=== PATIENT | female | born 1970 | race Hispanic/Latino ===

== ENCOUNTER 2017-05-20 17:26 | Emergency (ER) | payer MEDICAID ==
[~2017-05-20] VITALS: Ht 167.6 cm; Wt 84.1 kg
[~2017-05-20 17:26] MED LIST: LEVO75TA4 PO; ONDA4TAB12 PO; PROP20TA5 PO
[2017-05-20 17:51] VITALS: BP 154/102; PULSE 72; RESP 20; O2SAT 100
--- NOTE | 2017-05-20 18:30 | ED.REPORT ---
HPI-General Illness Date of Service May 20, 2017 ED Provider: Sincere Barrow MD The pt is a 46 y/o female with hx of anxiety, anemia and hypothyroidism who presents to the ED complaining of midsternal chest pain onset 4 hours ago after eating. The pain was initially 8/10 and accompanied by anxiety and diaphoresis but has now subsided to 0/10 after burping and relieving her anxiety. The pain has been intermittently present for four months. The pt reports the pain as nonradiating and sharp, and has noticed that it is exacerbated by eating. The pain was relieved with drinking club soda and burping. She denies swelling of the extremities, fever, abdominal pain, or hematemesis. The pt believes that her symptoms are due to anxiety or reflux. She has not been taking her anxiety medications recently. Nursing Notes Stated Complaint: CHEST PAIN, LIKE HEARTBURN, STABBING IN RIGHT SIDE Chief Complaint: Chest Pain Nursing Notes Reviewed: Yes Allergies: Coded Allergies: No Known Allergies (Verified , 09/25/14) Scheduled Levothyroxine (Levothyroxine) 75 Mcg Tablet 75 MCG PO DAILY Propranolol HCl (Propranolol HCl) 20 Mg Tablet 30 MG PO BID Scheduled PRN Ondansetron ODT (Ondansetron ODT) 4 Mg Tab.rapdis 4 MG PO BID PRN PRN For Nausea General Time Seen by MD: 20:56 Chief Complaint Chest pain Hx Obtained From: Patient Arrived By: Walk-in Sudden in Onset?: No Onset Occurred: 1 - 4 hours ago Symptom Duration: Waxes and wanes Location: : Chest Quality: Sharp Severity: Current: No pain currently Severity: Maximum: Pain level 8 out of 10 Recent Healthcare: No recent hospitalization, Recent doctor visit Similar Sx Previous: No Past Medical History Past Medical History hypothyroidism postconcussion syndrome causing chronic ANN & vertigo h/o drug induced agranulocytosis anemia depression anxiety Past Surgical History 3 c-sections Reports: Appendectomy Family History mother - DM father - kidney related illness Reports: Diabetes mellitus Smoking History Never Smoker Social History Alcohol Use: Denies alcohol use Drug Use: Denies drug use Ambulatory Status Independent Review of Systems Full Review of Systems Constitutional: Denies: Chills Eyes: Denies: Blurred bilateral Ears / Nose / Throat: Denies: Sore throat Respiratory: Denies: Hemoptysis, Non-productive cough Cardiovascular: Reports: Chest pain GI: Denies: Abdominal pain, Diarrhea, Hematochezia, Nausea Female: Denies: Hematuria Musculoskeletal: Denies: Extremity swelling Skin: Denies Rash, Denies Swelling Allergy / Immune: Denies: Itching Neurologic: Denies: Headache Psychiatric: Reports: Anxiety Complete sys rev & neg: except as marked. Physical Exam Constitutional: Well-developed, well-nourished. Not diaphoretic. Head: Normocephalic and atraumatic. Mouth/Throat: Oropharynx is clear and moist. No oropharyngeal exudate. Eyes: EOM are normal. Pupils are equal, round, and reactive to light. Neck: Supple, no tracheal deviation. Cardiovascular: Normal rate, regular rhythm. Equal and intact distal pulses throughout. Pulmonary/Chest: Effort normal and breath sounds normal. No respiratory distress. Abdominal: Soft. No distension. There is no tenderness, rebound, or guarding. Bowel sounds present. Musculoskeletal: Range of motion grossly intact, moving all extremities. No edema or tenderness appreciated. Neurological: AOx3. Grossly nonfocal exam. Strength and sensation intact and equal to bilateral upper and lower extremities. Skin: Warm and dry, no rashes or pallor appreciated. Psychiatric: Appropriate mood and affect. Behavior appears normal. Vital Signs Vital Signs Date Time Temp Pulse Resp B/P Pulse Ox O2 Delivery O2 Flow Rate FiO2 05/20/17 17:51 36.8 72 20 154/102 100 Room Air Initial VS: Reviewed Interpretation & Diagnostics Lab Results Interpretation Result Diagram: 05/20/17 1836 05/20/17 1836 Test 05/20/17 18:36 05/20/17 19:55 White Blood Count 7.7th/mm3 (3.8-10.1) Red Blood Count 3.98mil/mm3 (3.90-5.20) Hemoglobin 12.7g/dL (12.0-15.6) Hematocrit 36.5% (35.0-46.0) Mean Corpuscular Volume 91.7fL (81-100) Mean Corpuscular Hemoglobin 31.9pg (27.0-35.0) Mean Corpuscular Hemoglobin Concent 34.8% (32.0-37.0) Red Cell Distribution Width 12.2% (12.3-15.4) Platelet Count 248bil/L (150-400) Neutrophils (%) (Auto) 66.1% (40-74) Lymphocytes (%) (Auto) 25.6% (14-46) Monocytes (%) (Auto) 7.5% (4-12) Eosinophils (%) (Auto) 0.6% (0-5) Basophils (%) (Auto) 0.1% (0-3) Sodium Level 140mEq/L (134-144) Potassium Level 3.6mEq/L (3.5-5.2) Chloride Level 104mEq/L (97-108) Carbon Dioxide Level 25mmol/L (18-29) Blood Urea Nitrogen 13mg/dL (6-24) Creatinine 0.66mg/dL (0.57-1.00) Estimat Glomerular Filtration Rate 139mL/min (>59) Glucose Level 105mg/dL (60-99) Calcium Level 9.5mg/dL (8.5-10.1) Magnesium Level 2.2mg/dL (1.6-2.6) Total Bilirubin 0.3mg/dL (0.0-1.2) Aspartate Amino Transf (AST/SGOT) 16U/L (0-50) Alanine Aminotransferase (ALT/SGPT) 14U/L (0-32) Alkaline Phosphatase 111U/L (25-150) Troponin T < 0.010ug/L (0.0-0.011) Total Protein 7.8g/dL (6.4-8.4) Albumin 4.5g/dL (3.4-5.0) Thyroid Stimulating Hormone (TSH) 7.060uIU/mL (0.450-4.500) Free Thyroxine 0.97ng/dL (0.82-1.77) Hold Bernard Top Tube Received (Received) Hold Urine Received (Received) ECG Interpretation ECG Interpretation: Sinus rhythm normal with rate of 80 No ischemic changes Time: 17:32 X-Ray Chest Interpretation Chest Xray Interpretation: IMPRESSION: No acute pulmonary process. Dictated by: Vero Clarke M.D. on 05/20/2017 at 19:12 View: Portable, 1 view Re-Eval/Medical Decision Med Decision/Clinical Course In summary, 46-year-old female who presents to the ED for evaluation of nonexertional, nonradiating, midsternal chest pain after eating, alleviated by burping and club soda, now resolved. Differential includes ACS, PE, PTX, aortic dissection, myocarditis/pericarditis, abdominal etiology such as cholecystitis, MSK pain, reflux. Pain has been improving since onset several hours ago; troponin negative. HEART score lowest risk. EKG demonstrates sinus rhythm with no acute ischemic changes. PERC negative. No evidence of pneumothorax on chest x -ray or exam. Pain not described as tearing through to the back, CXR w/ no evidence of widened mediastinum, normal neuro exam, and equal pulses to bilateral upper and lower extremities; aortic dissection seems very unlikely. Neither clinical presentation, exam, or EKG seem c/w pericarditis or myocarditis. No abdominal pain or tenderness. Laboratory studies reviewed; CBC and CMP grossly within normal limits, troponin negative, TSH elevated at 7.060, however free T4 normal and patient is on Synthroid. Given that patient's pain is relieved by burping and after club soda, occurs only after eating and is now resolved, there may be some element of reflux involved. Plan discharge home with very careful return precautions and PCP follow-up in the next several days for reassessment. Patient agreeable to the plan as stated, no further questions. Source of Hx: Old records Time of Eval: 21:10 Re-Evaluation/Progress Note: Pt rechecked. Informed pt of diagnosis and plan for discharge. The pt understands and agrees with plan for discharge. F/U instructions and RTER warnings given. All questions addressed at this time. Counseled Regarding: Diagnosis, Lab results, Need for follow-up, When/why to return to ED Discharge & Departure Primary Impression: Chest pain Chest pain type: unspecified Qualified Code: R07.9 - Chest pain, unspecified Disposition: Home Discharge Condition All VS Reviewed: Yes Condition: Stable Patient Instructions: Chest Pain (ED) Additional Instructions: Thank you for allowing us to be a part of your care in the ED today. Your emergency department results, including EKG, chest x-ray, and laboratory studies, are reassuring. I do not think that there is an emergent cause for your symptoms today that would require admission to the hospital; however, a clear cause of your symptoms was not identified. Of note, one of your thyroid tests was mildly abnormal. Follow up with your regular doctor to discuss. Please schedule a follow up appointment with your primary care physician tomorrow for a recheck. Please return to the emergency department for any new or worsening symptoms including any nausea, vomiting, abdominal pain, shortness of breath, chest pain , one sided weakness/numbness, fevers, or chills, or if there's anything else of concern to you. Referrals: Lily Rm (PCP) Scribe Attestation Portions of this note were transcribed by Philly Staton and Maynor Singletary. I, Dr. Sincere Barrow personally performed the history, physical exam and medical decision-making; I reviewed and confirmed the accuracy of the information in the transcribed note. Signed by: Philly Singletary, Emanuel, 05/20/17. copies to: Lily Rm Risk Factors HEART Score HEART for MACE Score: 0-3 (low risk 0.9%-1.7%) PERC Rule PERC Result: All PERC criteria "No", PERC rule satisfied Sincere Barrow MD May 20, 2017 18:30 Philly Staton May 20, 2017 21:05 MAYNOR SINGLETARY May 20, 2017 23:14
[2017-05-20 18:39] LABS: BASOPHILS % (AUTO) 0.1 % (0-3); EOSINOPHILS % (AUTO) 0.6 % (0-5); MONOCYTES % (AUTO) 7.5 % (4-12); Mean Corpuscular Hemoglobin 31.9 pg (27.0-35.0); Mean Corpuscular Volume 91.7 fL (81-100); NEUTROPHILS % (AUTO) 66.1 % (40-74); Platelet Count 248 bil/L (150-400)
[2017-05-20 19:12] LABS: TROPONIN T < 0.010 ug/L (0.0-0.011)
--- NOTE | 2017-05-20 19:14 | DRSVH ---
PROCEDURE: X-RAY CHEST ONE VIEW, PORTABLE ([id number]) INDICATIONS: chest pain TECHNIQUE: One view of the chest was acquired. COMPARISON: None. FINDINGS: Surgical changes and devices: None. Lungs and pleura: No pleural effusions or pneumothorax. Lungs are clear. Mediastinum: Mediastinal contours appear normal. Heart size is normal. Bones and chest wall: No suspicious bony lesions. Overlying soft tissues appear unremarkable. IMPRESSION: No acute pulmonary process. Dictated by: Vero Clarke M.D. on 05/20/2017 at 19:12 Approved by: Vero Clarke M.D. on 05/20/2017 at 19:12
[2017-05-20 19:18] LABS: Magnesium 2.2 mg/dL (1.6-2.6)
[2017-05-20] MEDS ORDERED: Donnatal-Lido-Mylant 1:1:1 15 mL Syringe PO ONE (21:00)
[2017-05-20] MEDS ORDERED: LidocaineVisc 2%:Antacid 1:1 10 mL Syringe PO ONE (21:10)
== END 2017-05-20 21:50 | disposition home or self-care (01) ==
LOC: SED 17:26
DX: R07.2 Precordial pain (principal); F41.8 Other specified anxiety disorders; E03.9 Hypothyroidism, unspecified